=== PATIENT | male | born 1965 | race Caucasian/White ===

== ENCOUNTER 2022-11-23 13:20 | Outpatient (CLI) | payer OTHER ==
[~2022-11-23 13:20] MED LIST: Magnevist 469MG/ML 20 ML VIAL ONE
== END 2022-11-23 13:21 | disposition home or self-care (01) ==
LOC: CSHMRI 13:20
PROVIDERS: ATTEND Neurological Surgery
DX: M48.062 Spinal stenosis, lumbar region with neurogenic claudication (principal); Z98.1 Arthrodesis status; Z98.890 Other specified postprocedural states; M51.36 Other intervertebral disc degeneration, lumbar region; M47.896 Other spondylosis, lumbar region
CPT/HCPCS: 72158